=== PATIENT | male | born 1960 | race Two or more races ===

== ENCOUNTER 2017-01-09 08:54 | Outpatient (CLI) | payer BC ==
[~2017-01-09 08:54] MED LIST: ALBU8.5H2 IH; AMLO10TA4 PO; FLUT50DI IH; LISI40TA4 PO; METF500T4 PO; SITA25TA PO
[2017-01-09 09:24] LABS: BASOPHILS % (AUTO) 0.7 % (0.0-2.0); EOSINOPHILS # (AUTO) 0.2 /CMM (0.0-0.7); EOSINOPHILS % (AUTO) 2.9 % (0.0-6.0); HEMATOCRIT 45 % (39-51); HEMOGLOBIN 15.3 g/dL (13.5-17.5); LYMPHOCYTES % (AUTO) 14.4 % (20.0-44.0); MEAN CORPUSCULAR HEMOGLOBIN 29 PG (26.0-33.0); MEAN CORPUSCULAR HGB CONC 34 g/dl (31.0-36.0); MEAN CORPUSCULAR VOLUME 85 fL (80-96); MONOCYTES # (AUTO) 0.6 /CMM (0.1-1.30); MONOCYTES % (AUTO) 8.6 % (2.0-12.0); NEUTROPHILS % (AUTO) 73.4 % (43.0-81.0); PLATELET COUNT (AUTO) 231 /CMM (150-450); RDW COEFFICIENT OF VARIATION 14.3 (11.5-15.0); RED BLOOD CELL COUNT(AUTO) 5.37 MIL/uL (4.5-6.0); WHITE BLOOD COUNT (AUTO) 6.9 K/uL (4.3-11.0)
[2017-01-09 09:31] LABS: APPEARANCE,URINE CLEAR (CLEAR); BILIRUBIN,URINE NEGATIVE (NEGATIVE); BLOOD, URINE TRACE-INTA Ery/uL (NEGATIVE); COLOR,URINE YELLOW (YELLOW); KETONES,URINE NEGATIVE (NEGATIVE); LEUKOCYTE ESTERASE ,URINE NEGATIVE (NEGATIVE); NITRITE, URINE NEGATIVE (NEGATIVE); PROTEIN,URINE 1+ mg/dl (NEGATIVE); UGLUCOSE NEGATIVE (NEGATIVE); UROBILINOGEN,URINE 0.2 EU/dL (0.2)
[2017-01-09 09:35] LABS: ADD URINE CULTURE NO; BACTERIA,URINE None seen /HPF (None Seen); MUCUS,URINE Few /LPF (None Seen); RBC,URINE 0-2 /HPF (0-2); SQUAMOUS EPITHELIAL CELL,UR 0-2 /HPF (None Seen); URINE AMORPHOUS URATE Few /HPF (None Seen); WBC,URINE 0-2 /HPF (0-3)
[2017-01-09 09:41] LABS: CALCIUM, SERUM 8.9 mg/dL (8.5-10.1)
[2017-01-09 09:42] LABS: ALBUMIN 3.7 g/dL (3.4-5.0); BILIRUBIN,TOTAL 0.3 mg/dL (0.2-1.0); CREATININE 1.7 mg/dL (0.6-1.3); TOTAL PROTEIN, SERUM 7.7 g/dL (6.4-8.2)
[2017-01-09 09:52] LABS: THYROID STIMULATING HORMONE 1.547 uIU/mL (0.358-3.74)
[2017-01-10 09:19] LABS: T3 TOTAL 131 ng/dL (71-180)
[2017-01-10 11:12] LABS: HEPATITIS C VIRUS AB <0.1 s/co ratio (0.0-0.9)
== END 2017-01-09 23:59 | disposition home or self-care (01) ==
LOC: LAB 08:54
PROVIDERS: ATTEND Family Medicine
DX: Z11.59 Encounter for screening for other viral diseases (principal); E11.9 Type 2 diabetes mellitus without complications
CPT/HCPCS: 36415; 80053-TC; 80061-TC; 81000-TC; 84439-TC; 84443-TC; 84480; 85025-TC; 86803

== ENCOUNTER 2017-02-14 08:17 | Outpatient (CLI) | payer BC ==
[2017-02-14 09:13] LABS: APPEARANCE,URINE CLEAR (CLEAR); BILIRUBIN,URINE NEGATIVE (NEGATIVE); BLOOD, URINE TRACE Ery/uL (NEGATIVE); COLOR,URINE YELLOW (YELLOW); KETONES,URINE NEGATIVE (NEGATIVE); LEUKOCYTE ESTERASE ,URINE NEGATIVE (NEGATIVE); NITRITE, URINE NEGATIVE (NEGATIVE); PROTEIN,URINE 2+ mg/dl (NEGATIVE); UGLUCOSE NEGATIVE (NEGATIVE); UROBILINOGEN,URINE 0.2 EU/dL (0.2)
[2017-02-14 09:17] LABS: BASOPHILS % (AUTO) 0.5 % (0.0-2.0); EOSINOPHILS # (AUTO) 0.2 /CMM (0.0-0.7); EOSINOPHILS % (AUTO) 3.7 % (0.0-6.0); HEMATOCRIT 46 % (39-51); HEMOGLOBIN 15.5 g/dL (13.5-17.5); LYMPHOCYTES # (AUTO) 1.1 /CMM (0.8-4.8); LYMPHOCYTES % (AUTO) 16.1 % (20.0-44.0); MEAN CORPUSCULAR HEMOGLOBIN 29 PG (26.0-33.0); MEAN CORPUSCULAR HGB CONC 34 g/dl (31.0-36.0); MEAN CORPUSCULAR VOLUME 86 fL (80-96); MONOCYTES # (AUTO) 0.7 /CMM (0.1-1.30); MONOCYTES % (AUTO) 10.4 % (2.0-12.0); NEUTROPHILS # (AUTO) 4.6 /CMM (1.8-8.9); NEUTROPHILS % (AUTO) 69.3 % (43.0-81.0); PLATELET COUNT (AUTO) 222 /CMM (150-450); RDW COEFFICIENT OF VARIATION 14.6 (11.5-15.0); RED BLOOD CELL COUNT(AUTO) 5.36 MIL/uL (4.5-6.0); WHITE BLOOD COUNT (AUTO) 6.7 K/uL (4.3-11.0)
[2017-02-14 09:18] LABS: ALBUMIN 3.9 g/dL (3.4-5.0); BILIRUBIN,TOTAL 0.4 mg/dL (0.2-1.0); CALCIUM, SERUM 8.8 mg/dL (8.5-10.1); CREATININE 1.7 mg/dL (0.6-1.3); POTASSIUM 4.1 mmol/L (3.5-5.1)
[2017-02-14 09:26] LABS: RBC,URINE 0-2 /HPF (0-2); THYROID STIMULATING HORMONE 2.066 uIU/mL (0.358-3.74); WBC,URINE 0-2 /HPF (0-3)
[2017-02-14 09:28] LABS: ADD URINE CULTURE NO; BACTERIA,URINE None seen /HPF (None Seen); SQUAMOUS EPITHELIAL CELL,UR Rare /HPF (None Seen)
== END 2017-02-14 23:59 | disposition home or self-care (01) ==
LOC: LAB 08:17
PROVIDERS: ATTEND Family Medicine
DX: E11.9 Type 2 diabetes mellitus without complications (principal); M25.549 Pain in joints of unspecified hand
CPT/HCPCS: 36415; 80053-TC; 80061-TC; 81000-TC; 84439-TC; 84443-TC; 84480; 85025-TC

== ENCOUNTER 2017-04-30 08:22 | Outpatient (CLI) | payer BC ==
[2017-04-30 08:59] LABS: BASOPHILS # (AUTO) 0.1 /CMM (0.0-0.2); BASOPHILS % (AUTO) 0.6 % (0.0-2.0); EOSINOPHILS # (AUTO) 0.2 /CMM (0.0-0.7); EOSINOPHILS % (AUTO) 2.9 % (0.0-6.0); HEMATOCRIT 44 % (39-51); HEMOGLOBIN 14.9 g/dL (13.5-17.5); LYMPHOCYTES # (AUTO) 1.1 /CMM (0.8-4.8); LYMPHOCYTES % (AUTO) 13.3 % (20.0-44.0); MEAN CORPUSCULAR HEMOGLOBIN 29 PG (26.0-33.0); MEAN CORPUSCULAR HGB CONC 34 g/dl (31.0-36.0); MEAN CORPUSCULAR VOLUME 86 fL (80-96); MONOCYTES # (AUTO) 0.7 /CMM (0.1-1.30); NEUTROPHILS # (AUTO) 6.4 /CMM (1.8-8.9); NEUTROPHILS % (AUTO) 75.2 % (43.0-81.0); PLATELET COUNT (AUTO) 206 /CMM (150-450); RDW COEFFICIENT OF VARIATION 14.4 (11.5-15.0); RED BLOOD CELL COUNT(AUTO) 5.18 MIL/uL (4.5-6.0); WHITE BLOOD COUNT (AUTO) 8.4 K/uL (4.3-11.0)
[2017-04-30 09:22] LABS: ALBUMIN 3.7 g/dL (3.4-5.0); BILIRUBIN,TOTAL 0.3 mg/dL (0.2-1.0); CALCIUM, SERUM 8.5 mg/dL (8.5-10.1); CREATININE 1.6 mg/dL (0.6-1.3); POTASSIUM 4.1 mmol/L (3.5-5.1); TOTAL PROTEIN, SERUM 7.5 g/dL (6.4-8.2)
[2017-04-30 09:33] LABS: T4 (THYROXINE) 9.6 ug/dL (4.7-13.3); THYROID STIMULATING HORMONE 1.654 uIU/mL (0.358-3.74)
[2017-05-01 08:12] LABS: *TESTOSTERONE, SERUM 260 ng/dL (264-916); T3, FREE 3.6 pg/mL (2.0-4.4)
[2017-05-02 16:16] LABS: *TESTOSTERONE, FREE (DIRECT) 7.6 pg/mL (7.2-24.0)
== END 2017-04-30 23:59 | disposition home or self-care (01) ==
LOC: LAB 08:22
PROVIDERS: ATTEND Family Medicine
DX: E11.21 Type 2 diabetes mellitus with diabetic nephropathy (principal); E55.9 Vitamin D deficiency, unspecified; N52.1 Erectile dysfunction due to diseases classified elsewhere
CPT/HCPCS: 36415; 80053-TC; 80061-TC; 82306; 84402; 84403; 84436-TC; 84443-TC; 84481; 85025-TC

== ENCOUNTER 2017-05-16 08:52 | Outpatient (CLI) | payer BC | END 2017-05-16 23:59 | disposition home or self-care (01) | LOC: US 08:52 | PROVIDERS: ATTEND Family Medicine | DX: N40.0 Benign prostatic hyperplasia without lower urinary tract symptoms (principal); E11.21 Type 2 diabetes mellitus with diabetic nephropathy | CPT/HCPCS: 76770-TC ==

== ENCOUNTER 2017-06-18 08:47 | Outpatient (CLI) | payer BC | END 2017-06-18 23:59 | disposition home or self-care (01) | LOC: LAB 08:47 | PROVIDERS: ATTEND Family Medicine | DX: Z11.59 Encounter for screening for other viral diseases (principal); Z12.5 Encounter for screening for malignant neoplasm of prostate | CPT/HCPCS: 36415; 84153-TC; 86803 ==

== ENCOUNTER → 2017-08-29 | Outpatient (CLI) | payer BC ==
[2017-08-29 11:31] LABS: CREATININE, URINE 170.1 MG/DL (30.0-125.0); URINE TOTAL PROTEIN 159.6 mg/dL (0-11.9)
[2017-08-29 11:33] LABS: ALBUMIN 3.8 g/dL (3.4-5.0); BILIRUBIN,TOTAL 0.3 mg/dL (0.2-1.0); CALCIUM, SERUM 9.1 mg/dL (8.5-10.1); CREATININE 1.9 mg/dL (0.6-1.3); POTASSIUM 4.2 mmol/L (3.5-5.1); TOTAL PROTEIN, SERUM 7.8 g/dL (6.4-8.2)
== END | disposition home or self-care (01) ==
LOC: LAB 10:17
PROVIDERS: ATTEND Internal Medicine
DX: R03.0 Elevated blood-pressure reading, without diagnosis of hypertension (principal)
CPT/HCPCS: 36415; 80053-TC; 82570-TC; 84155-TC

== ENCOUNTER 2017-12-04 09:52 | Outpatient (CLI) | payer BC ==
[~2017-12-04 09:52] MED LIST changes: -ALBU8.5H2 IH; +ALBU8.5H8 IH
[2017-12-04 10:29] LABS: BASOPHILS % (AUTO) 0.3 % (0.0-2.0); EOSINOPHILS # (AUTO) 0.3 /CMM (0.0-0.7); EOSINOPHILS % (AUTO) 3.5 % (0.0-6.0); HEMATOCRIT 43 % (39-51); HEMOGLOBIN 14.5 g/dL (13.5-17.5); LYMPHOCYTES # (AUTO) 1.1 /CMM (0.8-4.8); LYMPHOCYTES % (AUTO) 15.3 % (20.0-44.0); MEAN CORPUSCULAR HEMOGLOBIN 29 PG (26.0-33.0); MEAN CORPUSCULAR HGB CONC 34 g/dl (31.0-36.0); MEAN CORPUSCULAR VOLUME 86 fL (80-96); MONOCYTES # (AUTO) 0.6 /CMM (0.1-1.30); MONOCYTES % (AUTO) 7.5 % (2.0-12.0); NEUTROPHILS # (AUTO) 5.4 /CMM (1.8-8.9); NEUTROPHILS % (AUTO) 73.4 % (43.0-81.0); PLATELET COUNT (AUTO) 228 /CMM (150-450); RDW COEFFICIENT OF VARIATION 14.3 (11.5-15.0); RED BLOOD CELL COUNT(AUTO) 4.96 MIL/uL (4.5-6.0); WHITE BLOOD COUNT (AUTO) 7.4 K/uL (4.3-11.0)
[2017-12-04 10:31] LABS: APPEARANCE,URINE CLEAR (CLEAR); BILIRUBIN,URINE NEGATIVE (NEGATIVE); BLOOD, URINE NEGATIVE Ery/uL (NEGATIVE); COLOR,URINE YELLOW (YELLOW); KETONES,URINE NEGATIVE (NEGATIVE); LEUKOCYTE ESTERASE ,URINE NEGATIVE (NEGATIVE); NITRITE, URINE NEGATIVE (NEGATIVE); PH,URINE 5.5 (5.0-8.0); PROTEIN,URINE 2+ mg/dl (NEGATIVE); UGLUCOSE NEGATIVE (NEGATIVE); UROBILINOGEN,URINE 0.2 EU/dL (0.2)
[2017-12-04 10:44] LABS: ALBUMIN 3.9 g/dL (3.4-5.0); BILIRUBIN,TOTAL 0.5 mg/dL (0.2-1.0); CALCIUM, SERUM 9.3 mg/dL (8.5-10.1); CREATININE 1.8 mg/dL (0.6-1.3); POTASSIUM 4.1 mmol/L (3.5-5.1); TOTAL PROTEIN, SERUM 8.5 g/dL (6.4-8.2)
[2017-12-04 10:51] LABS: THYROID STIMULATING HORMONE 1.226 uIU/mL (0.358-3.74)
[2017-12-04 11:46] LABS: BACTERIA,URINE None seen /HPF (None Seen); RBC,URINE 0-2 /HPF (0-2); SQUAMOUS EPITHELIAL CELL,UR Rare /HPF (None Seen); WBC,URINE 0-2 /HPF (0-3)
== END 2017-12-04 23:59 | disposition home or self-care (01) ==
LOC: LAB 09:52
PROVIDERS: ATTEND Family Medicine
DX: E11.21 Type 2 diabetes mellitus with diabetic nephropathy (principal)
CPT/HCPCS: 36415; 80053-TC; 80061-TC; 81000-TC; 84439-TC; 84443-TC; 85025-TC

== ENCOUNTER 2018-06-21 08:46 | Outpatient (CLI) | payer BC ==
[~2018-06-21 08:46] MED LIST changes: -METF500T4 PO; +METF500T6 PO
== END 2018-06-21 23:59 | disposition home or self-care (01) ==
LOC: US 08:46
PROVIDERS: ATTEND Family Medicine
DX: K80.20 Calculus of gallbladder without cholecystitis without obstruction (principal); I10 Essential (primary) hypertension; J45.909 Unspecified asthma, uncomplicated; E11.9 Type 2 diabetes mellitus without complications
CPT/HCPCS: 76700-TC

== ENCOUNTER 2018-06-27 09:42 | Outpatient (CLI) | payer BC ==
[~2018-06-27 09:42] MED LIST changes: +METF-440 PO; -METF500T6 PO
[2018-06-27 10:47] LABS: BASOPHILS # (AUTO) 0.1 /CMM (0.0-0.2); BASOPHILS % (AUTO) 0.6 % (0.0-2.0); EOSINOPHILS % (AUTO) 3.4 % (0.0-6.0); HEMATOCRIT 42 % (39-51); HEMOGLOBIN 13.6 g/dL (13.5-17.5); LYMPHOCYTES # (AUTO) 1.2 /CMM (0.8-4.8); LYMPHOCYTES % (AUTO) 12.5 % (20.0-44.0); MEAN CORPUSCULAR HGB CONC 32 g/dl (31.0-36.0); MEAN CORPUSCULAR VOLUME 89 fL (80-96); MONOCYTES # (AUTO) 0.8 /CMM (0.1-1.30); MONOCYTES % (AUTO) 8.2 % (2.0-12.0); NEUTROPHILS % (AUTO) 75.3 % (43.0-81.0); PLATELET COUNT (AUTO) 255 /CMM (150-450); RDW COEFFICIENT OF VARIATION 14.5 (11.5-15.0); RED BLOOD CELL COUNT(AUTO) 4.71 MIL/uL (4.5-6.0); WHITE BLOOD COUNT (AUTO) 9.3 K/uL (4.3-11.0)
[2018-06-27 11:19] LABS: FERRITIN 302 ng/mL (8-388)
[2018-06-27 11:29] LABS: IRON, SERUM 65 ug/dl (50-175); TOTAL IRON BINDING CAPACITY 294 ug/dl (250-450)
[2018-07-01 17:50] LABS: OCCULT BLOOD STOOL NEGATIVE (NEGATIVE)
[2018-07-01 17:51] LABS: OCCULT BLOOD STOOL NEGATIVE (NEGATIVE)
== END 2018-06-27 23:59 | disposition home or self-care (01) ==
LOC: LAB 09:42
PROVIDERS: ATTEND Family Medicine
DX: D64.9 Anemia, unspecified (principal); I10 Essential (primary) hypertension; E11.9 Type 2 diabetes mellitus without complications; J45.909 Unspecified asthma, uncomplicated
CPT/HCPCS: 36415; 82272-TC; 82728-TC; 83540-TC; 85025-TC

== ENCOUNTER 2018-10-03 11:20 | Outpatient (CLI) | payer BC | END 2018-10-03 23:59 | disposition home or self-care (01) | LOC: MRI 11:20 | DX: G31.9 Degenerative disease of nervous system, unspecified (principal); I25.9 Chronic ischemic heart disease, unspecified; J32.0 Chronic maxillary sinusitis | CPT/HCPCS: 70551-TC ==

== ENCOUNTER 2019-09-11 15:09 | Outpatient (CLI) | payer BC | END 2019-09-11 23:59 | disposition home or self-care (01) | LOC: MRI 15:09 | PROVIDERS: ATTEND Family Medicine | DX: M19.011 Primary osteoarthritis, right shoulder (principal); M77.8 Other enthesopathies, not elsewhere classified | CPT/HCPCS: 73221-TC ==

== ENCOUNTER 2020-03-25 15:02 | Outpatient (CLI) | payer BC ==
[2020-03-25 16:05] LABS: BASOPHILS # (AUTO) 0.1 /CMM (0.0-0.2); EOSINOPHILS % (AUTO) 3.8 % (0.0-6.0); HEMATOCRIT 38 % (39-51); HEMOGLOBIN 12.3 g/dL (13.5-17.5); LYMPHOCYTES # (AUTO) 1.1 /CMM (0.8-4.8); MEAN CORPUSCULAR HGB CONC 33 g/dl (31.0-36.0); MEAN CORPUSCULAR VOLUME 87 fL (80-96); MONOCYTES # (AUTO) 0.7 /CMM (0.1-1.30); MONOCYTES % (AUTO) 8.5 % (2.0-12.0); NEUTROPHILS # (AUTO) 6.3 /CMM (1.8-8.9); NEUTROPHILS % (AUTO) 73.7 % (43.0-81.0); PLATELET COUNT (AUTO) 244 /CMM (150-450); RED BLOOD CELL COUNT(AUTO) 4.29 MIL/uL (4.5-6.0); WHITE BLOOD COUNT (AUTO) 8.5 K/uL (4.3-11.0)
[2020-03-25 16:27] LABS: APPEARANCE,URINE CLEAR (CLEAR); BILIRUBIN,URINE NEGATIVE (NEGATIVE); BLOOD, URINE TRACE-INTA Ery/uL (NEGATIVE); COLOR,URINE YELLOW (YELLOW); KETONES,URINE NEGATIVE (NEGATIVE); LEUKOCYTE ESTERASE ,URINE NEGATIVE (NEGATIVE); NITRITE, URINE NEGATIVE (NEGATIVE); PROTEIN,URINE 100 mg/dl (NEGATIVE); UGLUCOSE NEGATIVE (NEGATIVE); UROBILINOGEN,URINE 0.2 EU/dL (0.2)
[2020-03-25 16:36] LABS: ALBUMIN 3.8 g/dL (3.4-5.0); BACTERIA,URINE None seen /HPF (None Seen); BILIRUBIN,TOTAL 0.3 mg/dL (0.2-1.0); CALCIUM, SERUM 8.8 mg/dL (8.5-10.1); CREATININE 2.3 mg/dL (0.6-1.3); POTASSIUM 4.3 mmol/L (3.5-5.1); SQUAMOUS EPITHELIAL CELL,UR Few /HPF (None Seen); TOTAL PROTEIN, SERUM 8.1 g/dL (6.4-8.2); WBC,URINE 0-2 /HPF (0-3)
[2020-03-25 16:54] LABS: FREE T4 (FREE THYROXINE) 1.11 ng/dL (0.76-1.46); PROSTATE SPECIFIC ANTIGEN SCR 3.33 ng/mL (0.00-4.00); THYROID STIMULATING HORMONE 1.58 uIU/mL (0.358-3.74); URIC ACID 6.3 mg/dL (2.6-7.2)
[2020-03-26 08:18] LABS: FOLIC ACID > 20.0 ng/mL (>3.0)
== END 2020-03-25 23:59 | disposition home or self-care (01) ==
LOC: LAB 15:02
PROVIDERS: ATTEND Family Medicine
DX: Z00.00 Encounter for general adult medical examination without abnormal findings (principal); E11.9 Type 2 diabetes mellitus without complications; E78.00 Pure hypercholesterolemia, unspecified; I10 Essential (primary) hypertension; E03.9 Hypothyroidism, unspecified; D64.9 Anemia, unspecified; E55.9 Vitamin D deficiency, unspecified
CPT/HCPCS: 36415; 80053-TC; 80061-TC; 81000-TC; 82306; 82728-TC; 83540-TC; 84153-TC; 84402; 84403; 84439-TC; 84443-TC; 84550-TC; 85025-TC; 87086-TC

== ENCOUNTER 2021-07-06 09:23 | Outpatient (CLI) | payer BC ==
[~2021-07-06 09:23] MED LIST changes: +LISI40TA13 PO; -LISI40TA4 PO
[2021-07-06 10:25] LABS: BASOPHILS # (AUTO) 0.1 K/uL (0.0-0.2); BASOPHILS % (AUTO) 1.1 % (0.0-2.0); EOSINOPHILS % (AUTO) 3.6 % (0.0-6.0); HEMATOCRIT 36 % (39-51); HEMOGLOBIN 11.8 g/dL (13.5-17.5); LYMPHOCYTES # (AUTO) 0.7 K/uL (0.8-4.8); LYMPHOCYTES % (AUTO) 11.2 % (20.0-44.0); MEAN CORPUSCULAR HGB CONC 33 g/dl (31.0-36.0); MEAN CORPUSCULAR VOLUME 88 fL (80-96); MONOCYTES # (AUTO) 0.6 K/uL (0.1-1.30); MONOCYTES % (AUTO) 8.9 % (2.0-12.0); NEUTROPHILS # (AUTO) 4.8 K/uL (1.8-8.9); NEUTROPHILS % (AUTO) 75.2 % (43.0-81.0); PLATELET COUNT (AUTO) 240 K/uL (150-450); RED BLOOD CELL COUNT(AUTO) 4.12 MIL/uL (4.5-6.0); WHITE BLOOD COUNT (AUTO) 6.3 K/uL (4.3-11.0)
[2021-07-06 10:38] LABS: BILIRUBIN,URINE NEGATIVE (NEGATIVE); COLOR,URINE YELLOW (YELLOW); LEUKOCYTE ESTERASE ,URINE NEGATIVE (NEGATIVE); NITRITE, URINE NEGATIVE (NEGATIVE); PROTEIN,URINE >=300 mg/dl (NEGATIVE); UGLUCOSE NEGATIVE (NEGATIVE); UROBILINOGEN,URINE 0.2 EU/dL (0.2)
[2021-07-06 10:53] LABS: ALBUMIN 3.4 g/dL (3.4-5.0); BILIRUBIN,TOTAL 0.2 mg/dL (0.2-1.0); CALCIUM, SERUM 8.2 mg/dL (8.5-10.1); CREATININE 2.7 mg/dL (0.6-1.3); POTASSIUM 4.4 mmol/L (3.5-5.1); TOTAL PROTEIN, SERUM 7.8 g/dL (6.4-8.2)
[2021-07-06 10:54] LABS: BACTERIA,URINE Few /HPF (None Seen); RBC,URINE 0-2 /HPF (0-2); SQUAMOUS EPITHELIAL CELL,UR Rare /HPF (None Seen); WBC,URINE 0-2 /HPF (0-3)
[2021-07-06 10:55] LABS: HYALINE CASTS, URINE Rare /LPF (None Seen)
[2021-07-06 10:56] LABS: FINE GRANULAR CASTS,URINE Rare /LPF (None Seen)
[2021-07-06 11:05] LABS: PROSTATE SPECIFIC ANTIGEN SCR 4.12 ng/mL (0.00-4.00); URIC ACID 6.1 mg/dL (2.6-7.2)
== END 2021-07-06 23:59 | disposition home or self-care (01) ==
LOC: LAB 09:23
PROVIDERS: ATTEND Legal Medicine
DX: E11.22 Type 2 diabetes mellitus with diabetic chronic kidney disease (principal); N18.9 Chronic kidney disease, unspecified; E78.5 Hyperlipidemia, unspecified
CPT/HCPCS: 36415; 80053-TC; 80061-TC; 81001; 82607-TC; 82728-TC; 83540-TC; 84153-TC; 84402; 84403; 84550-TC; 85025-TC; 87086-TC

== ENCOUNTER 2021-07-13 09:07 | Outpatient (CLI) | payer BC | END 2021-07-13 23:59 | disposition home or self-care (01) | LOC: US 09:07 | PROVIDERS: ATTEND Legal Medicine | DX: N18.9 Chronic kidney disease, unspecified (principal); N40.1 Benign prostatic hyperplasia with lower urinary tract symptoms; N13.8 Other obstructive and reflux uropathy | CPT/HCPCS: 76770-TC; 76856-TC ==

== ENCOUNTER 2022-06-22 09:49 | Outpatient (CLI) | payer BC ==
[2022-06-22 11:03] LABS: BASOPHILS # (AUTO) 0.1 K/uL (0.0-0.2); EOSINOPHILS % (AUTO) 3.7 % (0.0-6.0); HEMATOCRIT 36 % (39-51); HEMOGLOBIN 11.9 g/dL (13.5-17.5); LYMPHOCYTES # (AUTO) 0.7 K/uL (0.8-4.8); LYMPHOCYTES % (AUTO) 10.4 % (20.0-44.0); MEAN CORPUSCULAR HGB CONC 33 g/dl (31.0-36.0); MEAN CORPUSCULAR VOLUME 85 fL (80-96); MONOCYTES # (AUTO) 0.6 K/uL (0.1-1.30); NEUTROPHILS # (AUTO) 5.4 K/uL (1.8-8.9); NEUTROPHILS % (AUTO) 76.9 % (43.0-81.0); PLATELET COUNT (AUTO) 255 K/uL (150-450); RED BLOOD CELL COUNT(AUTO) 4.23 MIL/uL (4.5-6.0); WHITE BLOOD COUNT (AUTO) 7.1 K/uL (4.3-11.0)
[2022-06-22 11:35] LABS: ALBUMIN 3.6 g/dL (3.4-5.0); BILIRUBIN,TOTAL 0.3 mg/dL (0.2-1.0); CALCIUM, SERUM 8.8 mg/dL (8.5-10.1); CREATININE 3.4 mg/dL (0.6-1.3); POTASSIUM 4.1 mmol/L (3.5-5.1)
[2022-06-22 11:49] LABS: TOTAL PROTEIN, SERUM 7.9 g/dL (6.4-8.2)
[2022-06-22 11:52] LABS: THYROID STIMULATING HORMONE 0.911 uIU/mL (0.358-3.74)
== END 2022-06-22 23:59 | disposition home or self-care (01) ==
LOC: LAB 09:49
PROVIDERS: ATTEND Internal Medicine Interventional Cardiology
DX: I10 Essential (primary) hypertension (principal); E11.9 Type 2 diabetes mellitus without complications; D64.9 Anemia, unspecified; E78.5 Hyperlipidemia, unspecified; R53.83 Other fatigue
CPT/HCPCS: 36415; 80053-TC; 80061-TC; 84443-TC; 85025-TC

== ENCOUNTER 2022-09-20 09:25 | Outpatient (CLI) | payer BC ==
[2022-09-20 11:38] LABS: BASOPHILS # (AUTO) 0.1 K/uL (0.0-0.2); BASOPHILS % (AUTO) 0.9 % (0.0-2.0); EOSINOPHILS % (AUTO) 7.5 % (0.0-6.0); HEMATOCRIT 40 % (39-51); HEMOGLOBIN 12.8 g/dL (13.5-17.5); LYMPHOCYTES # (AUTO) 0.8 K/uL (0.8-4.8); LYMPHOCYTES % (AUTO) 14.6 % (20.0-44.0); MEAN CORPUSCULAR HGB CONC 32 g/dl (31.0-36.0); MEAN CORPUSCULAR VOLUME 87 fL (80-96); MONOCYTES # (AUTO) 0.6 K/uL (0.1-1.30); NEUTROPHILS # (AUTO) 3.9 K/uL (1.8-8.9); PLATELET COUNT (AUTO) 197 K/uL (150-450); PROSTATE SPECIFIC ANTIGEN SCR 3.89 ng/mL (0.00-4.00); RED BLOOD CELL COUNT(AUTO) 4.55 MIL/uL (4.5-6.0); THYROID STIMULATING HORMONE 0.933 uIU/mL (0.358-3.74); URIC ACID 7.6 mg/dL (2.6-7.2); WHITE BLOOD COUNT (AUTO) 5.8 K/uL (4.3-11.0)
[2022-09-20 11:47] LABS: ALBUMIN 3.9 g/dL (3.4-5.0); BILIRUBIN,TOTAL 0.2 mg/dL (0.2-1.0); CALCIUM, SERUM 8.7 mg/dL (8.5-10.1); CREATININE 3.1 mg/dL (0.6-1.3); POTASSIUM 3.8 mmol/L (3.5-5.1); TOTAL PROTEIN, SERUM 8.1 g/dL (6.4-8.2)
[2022-09-20 11:53] LABS: BILIRUBIN,URINE NEGATIVE (NEGATIVE); COLOR,URINE YELLOW (YELLOW); LEUKOCYTE ESTERASE ,URINE NEGATIVE (NEGATIVE); NITRITE, URINE NEGATIVE (NEGATIVE); PH,URINE 5.5 (5.0-8.0); PROTEIN,URINE 2+ mg/dl (NEGATIVE); UGLUCOSE TRACE mg/dL (NEGATIVE); UROBILINOGEN,URINE 0.2 EU/dL (0.2)
[2022-09-20 12:33] LABS: BACTERIA,URINE None seen /HPF (None Seen); RBC,URINE NONE SEEN /HPF (0-2); SQUAMOUS EPITHELIAL CELL,UR None Seen /HPF (None Seen); WBC,URINE NONE SEEN /HPF (0-3)
== END 2022-09-20 23:59 | disposition home or self-care (01) ==
LOC: LAB 09:25
PROVIDERS: ATTEND Legal Medicine
DX: R05.9 Cough, unspecified (principal); E11.9 Type 2 diabetes mellitus without complications; Z00.00 Encounter for general adult medical examination without abnormal findings; E55.9 Vitamin D deficiency, unspecified; D64.9 Anemia, unspecified; E78.00 Pure hypercholesterolemia, unspecified; E03.9 Hypothyroidism, unspecified
CPT/HCPCS: 36415; 71046; 80053-TC; 80061-TC; 81001; 82607-TC; 82728-TC; 83540-TC; 84153-TC; 84402; 84403; 84443-TC; 84550-TC; 85025-TC

== ENCOUNTER 2022-11-22 09:26 | Outpatient (CLI) | payer BC ==
[2022-11-22 10:36] LABS: BASOPHILS # (AUTO) 0.1 K/uL (0.0-0.2); BASOPHILS % (AUTO) 0.8 % (0.0-2.0); EOSINOPHILS % (AUTO) 3.8 % (0.0-6.0); HEMATOCRIT 36 % (39-51); HEMOGLOBIN 12.2 g/dL (13.5-17.5); LYMPHOCYTES # (AUTO) 0.7 K/uL (0.8-4.8); LYMPHOCYTES % (AUTO) 9.2 % (20.0-44.0); MEAN CORPUSCULAR HGB CONC 33 g/dl (31.0-36.0); MEAN CORPUSCULAR VOLUME 84 fL (80-96); MONOCYTES # (AUTO) 0.6 K/uL (0.1-1.30); MONOCYTES % (AUTO) 7.9 % (2.0-12.0); NEUTROPHILS # (AUTO) 6.3 K/uL (1.8-8.9); NEUTROPHILS % (AUTO) 78.3 % (43.0-81.0); PLATELET COUNT (AUTO) 307 K/uL (150-450); RED BLOOD CELL COUNT(AUTO) 4.31 MIL/uL (4.5-6.0)
[2022-11-22 11:01] LABS: BILIRUBIN,URINE NEGATIVE (NEGATIVE); COLOR,URINE YELLOW (YELLOW); LEUKOCYTE ESTERASE ,URINE NEGATIVE (NEGATIVE); NITRITE, URINE NEGATIVE (NEGATIVE); PROTEIN,URINE 2+ mg/dl (NEGATIVE); UGLUCOSE NEGATIVE (NEGATIVE); UROBILINOGEN,URINE 0.2 EU/dL (0.2)
[2022-11-22 11:44] LABS: PROSTATE SPECIFIC ANTIGEN SCR 3.93 ng/mL (0.00-4.00); THYROID STIMULATING HORMONE 0.628 uIU/mL (0.358-3.74); URIC ACID 7.4 mg/dL (2.6-7.2)
[2022-11-22 11:47] LABS: ALBUMIN 3.7 g/dL (3.4-5.0); BILIRUBIN,TOTAL 0.3 mg/dL (0.2-1.0); CALCIUM, SERUM 9.2 mg/dL (8.5-10.1); POTASSIUM 3.8 mmol/L (3.5-5.1); TOTAL PROTEIN, SERUM 8.1 g/dL (6.4-8.2)
[2022-11-22 12:54] LABS: BACTERIA,URINE Few /HPF (None Seen); RBC,URINE 0-2 /HPF (0-2); SQUAMOUS EPITHELIAL CELL,UR Few /HPF (None Seen); WBC,URINE 0-2 /HPF (0-3)
== END 2022-11-22 23:59 | disposition home or self-care (01) ==
LOC: LAB 09:26
PROVIDERS: ATTEND Legal Medicine
DX: Z00.00 Encounter for general adult medical examination without abnormal findings (principal); E11.9 Type 2 diabetes mellitus without complications; E78.00 Pure hypercholesterolemia, unspecified; D64.9 Anemia, unspecified; E03.9 Hypothyroidism, unspecified
CPT/HCPCS: 36415; 80053-TC; 80061-TC; 81001; 82607-TC; 82728-TC; 83540-TC; 84153-TC; 84402; 84403; 84443-TC; 84550-TC; 85025-TC

== ENCOUNTER 2023-02-22 12:19 | Inpatient (IN) | payer BC ==
[~2023-02-22] VITALS: Ht 170.2 cm; Wt 94.3 kg
--- NOTE | 2023-02-22 12:34 | NUR ---
IV ESTABLISHED R 20G. LABS COLLECTED AND SENT.
--- NOTE | 2023-02-22 12:38 | NUR ---
Brandon AOx4, able to express his own concerns. Patient states he was having chest pressure earlier, not at the moment. Patient states there is no pain or discomfort now. Discussed plan of care, patient verbalized agreement. All safety precautions taken.
[2023-02-22] MEDS ORDERED: ASPIRIN 325 MG TABLET PO ONE (13:00)
[2023-02-22 13:01] LABS: BASOPHILS # (AUTO) 0.2 K/uL (0.0-0.2); BASOPHILS % (AUTO) 1.8 % (0.0-2.0); EOSINOPHILS % (AUTO) 4.4 % (0.0-6.0); HEMATOCRIT 40 % (39-51); HEMOGLOBIN 12.8 g/dL (13.5-17.5); LYMPHOCYTES # (AUTO) 0.9 K/uL (0.8-4.8); LYMPHOCYTES % (AUTO) 10.4 % (20.0-44.0); MEAN CORPUSCULAR HGB CONC 32 g/dl (31.0-36.0); MEAN CORPUSCULAR VOLUME 88 fL (80-96); MONOCYTES % (AUTO) 10.5 % (2.0-12.0); NEUTROPHILS # (AUTO) 6.6 K/uL (1.8-8.9); NEUTROPHILS % (AUTO) 72.9 % (43.0-81.0); PLATELET COUNT (AUTO) 229 K/uL (150-450); RED BLOOD CELL COUNT(AUTO) 4.53 MIL/uL (4.5-6.0)
--- NOTE | 2023-02-22 13:14 | NUR ---
CALLED NURSING SUP REGARDING PT BED
[2023-02-22] MEDS ORDERED: ASPIRIN 325 MG TABLET ONE (13:19)
[2023-02-22 13:38] LABS: CARBON DIOXIDE 24 mmol/L (21-32); CHLORIDE 103 mmol/L (98-107); CREATININE 3.6 mg/dL (0.6-1.3); GLUCOSE 207 mg/dL (74-106); POTASSIUM 4.3 mmol/L (3.5-5.1); SODIUM SERUM 136 mmol/L (136-145); UREA NITROGEN, BLOOD 45 mg/dL (7-18)
[2023-02-22] MEDS ORDERED: NATE120T6 PO (13:39)
[2023-02-22] MEDS ORDERED: FLUT1DIS3 INH (13:39)
[2023-02-22] MEDS ORDERED: LOSA50TA39 PO (13:39)
[2023-02-22] MEDS ORDERED: NATE60TA4 PO (13:39)
[2023-02-22] MEDS ORDERED: ATOR10TA PO (13:39)
[2023-02-22] MEDS ORDERED: FLUO20CA42 PO (13:39)
[2023-02-22] MEDS ORDERED: HYDR25TA4 PO (13:39)
[2023-02-22 13:50] LABS: ALANINE AMINOTRANSFERASE 50 U/L (12-78); ALKALINE PHOSPHATASE 99 U/L (46-116); ASPARTATE AMINOTRANSFERASE 31 U/L (15-37); BILIRUBIN,DIRECT 0.1 mg/dL (0.0-0.2); BILIRUBIN,TOTAL 0.3 mg/dL (0.2-1.0); TOTAL PROTEIN, SERUM 8.2 g/dL (6.4-8.2)
[2023-02-22] MEDS ORDERED: HYDROCODONE/APAP 5/325MG TABLET PO PRN (14:30)
[2023-02-22] MEDS ORDERED: ACETAMINOPHEN 325 MG TABLET PO PRN (14:30)
[2023-02-22] MEDS ORDERED: NITROGLYCERIN 0.4 MG/TAB BOTTLE SL PRN (14:30)
[2023-02-22] MEDS ORDERED: ONDANSETRON HCL/PF 4 MG/2 ML VIAL IVP PRN (14:30)
[2023-02-22] MEDS ORDERED: IV 1/2NS 1000 ML 1,000 ML IV PRN (14:30)
[2023-02-22] MEDS ORDERED: MORPHINE SULFATE INJ 2 MG/ML DISP.SYRIN IV PRN (14:30)
[2023-02-22] MEDS ORDERED: Z GUARD REMEDY 4 OZ OINT TP PRN (14:30)
[2023-02-22] MEDS ORDERED: DEXTROSE 50%-WATER 50 ML DISP.SYRIN IV PRN (14:30)
--- NOTE | 2023-02-22 14:59 | NUR ---
ROOM 321-1
--- NOTE | 2023-02-22 15:10 | NUR ---
REPORT GIVEN TO NURSE HEATHER FOR EMERALD
--- NOTE | 2023-02-22 15:59 | NUR ---
SHAKER REPAIRERMASTER [place] NOTE (DAY SHIFT) Patient arrived to [facility] , Room 321 - bed 2, from Emergency Dept via gurney accompanied by his at 15:55 hrs. Patient is alert and oriented x 4 without any c/o pain nor signs of distress, oxygen saturation = 98% on room air. VS stable. monitoring coordinator shows sinus rythym in the 60s bpm heart range. Patient is independent, steady on his feet without dizziness nor palpitations. Will continue to care for and monitor patient per MD POC.
[2023-02-22] MEDS ORDERED: ALBUTEROL FS 2.5 MG/3 ML VIAL.NEB NEB PRN (16:00)
[2023-02-22] MEDS: BLOOD SUGAR DIAGNOSTIC 1 EACH STRIP IN SCH ×2 (16:48→22:00)
[2023-02-22] MEDS: LOSARTAN POTASSIUM 50 MG TABLET PO SCH (16:48)
[2023-02-22] MEDS: INSULIN REGULAR, HUMAN 100 UNIT/ML 3 ML VIAL SQ PRN (16:52)
[2023-02-22] MEDS ORDERED: FLUTICASONE/SALMETEROL 1 DISK IH SCH (17:00)
--- NOTE | 2023-02-22 19:00 | NUR ---
ASSEMBLY MECHANIC CLOSING NOTE (DAY SHIFT) Patient is comfortable in bed. No c/o pain. Breathing is regular and even without distress. classroom monitor continues to show sinus rythym in the 60s bpm range. SCDs on for VTE prophylaxis. Ate 100% of diabetic dinner meal. Has pIV catheter # 20 Gauge to right antecubital space, intact, patent, with 1/2 NS infusing well at 75 mLs/hr. Will endorse to night nurse,Russell, for EMERALD.
--- NOTE | 2023-02-22 19:42 | NUR ---
DCS ENGINEER OPENING NOTES; RECEIVED PATIENT AWAKE IN BED ACCOMPANIED BY FAMILY, BED IN LOW POSITION YOSEPH LIGHTS WITHIN REACH, NO COMPLAIN OF PAIN AND DISCOMFORT AT THIS TIME , ON ROOM AIR SATURATING WELL, PATIENT ON TELE MONITOR- SR-60, IV LINE AT RAC#20 WITH ONGOING 1/6CQ115TF/HR INFUSING WELL, VNPO POST MN, PATIENT KEPT CLEAN AND DRY ALL NEEDS MET WILL CONTINUE TO MONITOR.
[2023-02-22 20:00] VITALS: BP 153/85
--- NOTE | 2023-02-22 22:00 | NUR ---
RN NOTES: PATIENT REFUSED TO SIGNED CONSENT UNTIL HE TALK WITH THE DOCTOR PAVEL
--- NOTE | 2023-02-22 22:06 | NUR ---
RN NOTES; BLOOD SUGAR-112/ PATIENT ON PO POST MIDNIGHT/ OUT OF PARAMETER
[2023-02-23] VITALS (14 sets, daily range): BP systolic 118–148; BP diastolic 67–80
[2023-02-23] MEDS ORDERED: IV SET PRIMARY PUMP SET 1 EA INFUS.SET MC ONE (06:45)
[2023-02-23] MEDS ORDERED: IV NS 0.9% 1,000 ML ONE (06:45)
[2023-02-23] MEDS ORDERED: LIDOCAINE HCL/PF 1% 30 ML SDV ONE (06:46)
[2023-02-23] MEDS ORDERED: IODIXANOL 150 ML IV ONE (06:46)
[2023-02-23] MEDS ORDERED: NITROGLYCERIN IN 5 % DEXTROSE 250 ML IV ONE (06:46)
[2023-02-23 06:50] LABS: BASOPHILS # (AUTO) 0.1 K/uL (0.0-0.2); BASOPHILS % (AUTO) 1.1 % (0.0-2.0); EOSINOPHILS % (AUTO) 5.7 % (0.0-6.0); HEMATOCRIT 37 % (39-51); LYMPHOCYTES # (AUTO) 1.1 K/uL (0.8-4.8); LYMPHOCYTES % (AUTO) 12.9 % (20.0-44.0); MEAN CORPUSCULAR HGB CONC 33 g/dl (31.0-36.0); MEAN CORPUSCULAR VOLUME 85 fL (80-96); MONOCYTES # (AUTO) 0.9 K/uL (0.1-1.30); MONOCYTES % (AUTO) 10.1 % (2.0-12.0); NEUTROPHILS # (AUTO) 5.9 K/uL (1.8-8.9); NEUTROPHILS % (AUTO) 70.2 % (43.0-81.0); PLATELET COUNT (AUTO) 223 K/uL (150-450); RED BLOOD CELL COUNT(AUTO) 4.31 MIL/uL (4.5-6.0); WHITE BLOOD COUNT (AUTO) 8.4 K/uL (4.3-11.0)
[2023-02-23] MEDS: BLOOD SUGAR DIAGNOSTIC 1 EACH STRIP IN SCH ×4 (06:54→22:11)
--- NOTE | 2023-02-23 06:55 | NUR ---
RN NOTES: BLOOD SUGAR-189, NO INSULIN GIVEN PATIENT ON NPO FOR CARDIAC CATHETERIZATION
[2023-02-23] MEDS ORDERED: methylPREDNISolone SOD SUCC 125 MG/2ML VIAL ONE (06:56)
[2023-02-23] MEDS ORDERED: diphenhydrAMINE HCL 50 MG/ML VIAL ONE (07:04)
[2023-02-23] MEDS ORDERED: FENTANYL PF 100MCG/2ML AMPUL ONE (07:05)
[2023-02-23] MEDS: BUDESONIDE RESPULE INH 0.5 MG/2 ML AMPUL.NEB NEB SCH ×2 (07:05→13:11)
--- NOTE | 2023-02-23 07:15 | NUR ---
PROCESS SAFETY MANAGEMENT ENGINEER CLOSING NOTES: PATIENT WAS AWAKE ACCOMPANIED BY AT ROOM, ON NPO FOR CARDIAC CATHETERIZATION RETAIL COVERAGE MERCHANDISER AT 0640A, IV LINE AT RAC#22 WITH ONGOING 0.9NSS@75ML/HR INFUSING WELL, V/S ARE WITHIN NORMAL REACH, NO SOB ON ROOM AIR, PRE OPERATION LIST WAS GIVEN, CONSENT SIGNED, PATIENT KEPT CLEAN AND DRY ALL NEEDS MET, RETAIL COVERAGE MERCHANDISER TO CARDIAC LAB AT 0640 ON STABLE CONDITION,
[2023-02-23 07:18] LABS: ALBUMIN 3.5 g/dL (3.4-5.0); BILIRUBIN,TOTAL 0.4 mg/dL (0.2-1.0); CALCIUM, SERUM 8.9 mg/dL (8.5-10.1); CREATININE 3.1 mg/dL (0.6-1.3); MAGNESIUM 2.4 mg/dL (1.8-2.4); PHOSPHORUS 4.1 mg/dL (2.5-4.9); POTASSIUM 4.7 mmol/L (3.5-5.1); TOTAL PROTEIN, SERUM 7.4 g/dL (6.4-8.2)
--- NOTE | 2023-02-23 07:20 | NUR ---
RECEPTIONIST SCHEDULER OPENING NOTES ENDORSED FORM IMPROVEMENT COORDINATOR THAT PATIENT IS ON PROCEDURE AT THIS TIME FOR LEFT HEART CATHETERAZATION
[2023-02-23] MEDS ORDERED: HEPARIN SODIUM, PORCINE 5000 UNITS/1 ML VIAL ONE (07:27)
[2023-02-23] MEDS ORDERED: IODIXANOL 320MG/ML 50 ML IV ONE ×2 (07:28→07:56)
[2023-02-23] MEDS ORDERED: HEPARIN SODIUM, PORCINE 1,000 UNIT/ML VIAL ONE ×2 (07:28→07:54)
[2023-02-23] MEDS: PANTOPRAZOLE 40 MG TABLET.DR PO SCH (07:30)
[2023-02-23] MEDS ORDERED: PHENYLEPHRINE 10 MG/ML VIAL ONE (07:33)
[2023-02-23] MEDS: ALBUTEROL FS 2.5 MG/0.5 ML VIAL.NEB NEB SCH ×3 (07:35→19:56)
[2023-02-23] MEDS ORDERED: ADENOSINE 6 MG/2 ML VIAL ONE (07:39)
[2023-02-23] MEDS ORDERED: IV NS 0.9% 500 ML IV ONE (07:43)
[2023-02-23] MEDS ORDERED: TICAGRELOR 90 MG TABLET PO ONE (07:47)
[2023-02-23] MEDS: NATEGLINIDE 60 MG TABLET PO SCH ×2 (08:00→12:18)
[2023-02-23] MEDS ORDERED: ASPIRIN 81 MG TAB.CHEW ONE (08:09)
--- NOTE | 2023-02-23 08:27 | NUR ---
PT ARRIVED TO ICU TO ROOM 259 FROM WAFFLE MACHINE OPERATOR. PER REPORT 1 STENT WAS PLACED IN THE LAD. RIGHT RADIAL TR BAND IN PLACE WITH INSTRUCTIONS TO START PULLING AIR OUT AT 1010. PT IS SLEEPY BUT OX4 WITHOUT DIFFICULTY. PT CHECKED ON HOURLY AND PRN BY NURSING STAFF.
[2023-02-23] MEDS: ATORVASTATIN 10 MG TABLET PO SCH ×2 (09:00→10:40)
[2023-02-23] MEDS: FLUOXETINE HCL 20 MG CAPSULE PO SCH ×2 (09:00→10:40)
[2023-02-23] MEDS ORDERED: IV NS 0.9% 1,000 ML IV SCH (09:30)
[2023-02-23] MEDS: LOSARTAN POTASSIUM 50 MG TABLET PO SCH ×2 (10:40→17:24)
[2023-02-23] MEDS: AMLODIPINE BESYLATE 10 MG TABLET PO SCH (10:40)
[2023-02-23] MEDS: METOPROLOL TARTRATE 25 MG TABLET PO SCH ×2 (12:18→21:17)
[2023-02-23] MEDS: INSULIN REGULAR, HUMAN 100 UNIT/ML 3 ML VIAL SQ PRN ×3 (12:19→21:16)
--- NOTE | 2023-02-23 15:00 | NUR ---
TR BAND REMOVED PER PROTOCOL, STARTING AT 1015 ENDING AT 1504. AIR REMOVAL SLOW AND CONSERVATIVE D/T OOZING.
--- NOTE | 2023-02-23 16:17 | NUR ---
PT CAN BE TRANSFERRED BACK TO ROOM 321-2 AT THIS TIME PER MD ORDERS, TR BAND IS OFF, 6 HOUR ICU OBSERVATION IS OVER. REPORT CALLED TO 3W. PT'S IS AT BEDSIDE.
--- NOTE | 2023-02-23 16:35 | NUR ---
PT TRANSPORTED TO ROOM 321-1 VIA BED USING ACLS PROTOCOL. ALL BELONGINGS BROUGHT WITH PATIENT, AT BEDSIDE. BEDSIDE UPDATE GIVEN. PT SETTLED IN ROOM.
--- NOTE | 2023-02-23 16:50 | NUR ---
RN NOTE- TRANSFER BACK FROM ICU. PT HAD STENT PLACED BY DR ZHAO TO LAD. PT STABLE, VSS, CALM AOX4. ORDERS RECEIVED AND COMPLIED WITH, SIDE RAILS UP, BED LOCKED, NEEDS ATTENDED. MONITOR / ASSIST, CONTINUE PLAN OF CARE
--- NOTE | 2023-02-23 18:41 | NUR ---
RN CLOSING NOTE- PT AOX4 IN BED, INTERACTIVE, DENIES PAIN, VS STABLE. PO INTAKE GOOD, VOIDING IN BR WITH STANDBY MONITORING. UA SENT FOR CX, NEEDS ATTENDED, BED LOCKED, SIDE RAILS UP X 2, CALL LIGHT IN REACH. MONITOR / ASSIST
--- NOTE | 2023-02-23 19:38 | NUR ---
RN OPENING NOTE PATIENT AWAKE IN ROOM W/ AT BEDSIDE. A/OX4. NO S/S OF DISTRESS, BREATHING WITHOUT DIFFICULTY ON ROOM AIR. NO IV ACCESS AT THIS TIME. TELE READS SR 70. SAFETY MEASURES IN PLACE: BED AT LOCKED AND AT LOWEST POSITION, RAILS UP X2, CALL ROMANO WITHIN REACH. WILL CONTINUE TO MONITOR PATIENT.
[2023-02-23 21:56] LABS: BILIRUBIN,URINE NEGATIVE (NEGATIVE); COLOR,URINE YELLOW (YELLOW); LEUKOCYTE ESTERASE ,URINE NEGATIVE (NEGATIVE); NITRITE, URINE NEGATIVE (NEGATIVE); PROTEIN,URINE 2+ mg/dl (NEGATIVE); UGLUCOSE 3+ mg/dL (NEGATIVE); UROBILINOGEN,URINE 0.2 EU/dL (0.2)
[2023-02-23] MEDS ORDERED: FLUOXETINE HCL 20 MG CAPSULE PO SCH (22:00)
[2023-02-23] MEDS ORDERED: ATORVASTATIN 10 MG TABLET PO SCH ×2 (22:00)
[2023-02-23 22:23] LABS: WBC,URINE 0-2 /HPF (0-3)
[2023-02-23 22:24] LABS: BACTERIA,URINE None seen /HPF (None Seen); SQUAMOUS EPITHELIAL CELL,UR 0-2 /HPF (None Seen)
[2023-02-24] VITALS: BP 127/63
[2023-02-24] MEDS: ALBUTEROL FS 2.5 MG/0.5 ML VIAL.NEB NEB SCH ×3 (01:30→13:30)
[2023-02-24 04:00] VITALS: BP 125/70
[2023-02-24] MEDS: INSULIN REGULAR, HUMAN 100 UNIT/ML 3 ML VIAL SQ PRN ×2 (06:37→13:03)
[2023-02-24] MEDS: BLOOD SUGAR DIAGNOSTIC 1 EACH STRIP IN SCH ×2 (06:37→11:20)
--- NOTE | 2023-02-24 06:49 | NUR ---
RN CLOSING NOTE PATIENT AWAKE IN BED. A/OX4. NO S/S OF DISTRESS, BREATHING WITHOUT DIFFICULTY ON ROOM AIR. RAC #20 SL INTACT AND PATENT. TELE READS SR 60. SAFETY MEASURES IN PLACE: BED LOCKED AND AT LOWEST POSITION, RAILS UP X2, CALL ROMANO WITHIN REACH. WILL ENDORSE TO NEXT SHIFT FOR EMERALD.
[2023-02-24 07:00] VITALS: BP 136/72
[2023-02-24] MEDS: BUDESONIDE RESPULE INH 0.5 MG/2 ML AMPUL.NEB NEB SCH (07:05)
--- NOTE | 2023-02-24 07:25 | NUR ---
DIRECT CARE STAFFER OPENING NO PATIENT AWAKE IN ROOM A/O X 4 . VERBALLY RESPONSIVE , NO C/O OF PAIN AND DISCOMFORT , NO S/S OF DISTRESS, BREATHING WITHOUT DIFFICULTY ON ROOM AIR IV ACCESS ON THE RAC G#20 SL, . TELE READS SR 60 . SAFETY MEASURES IN PLACE: BED AT LOCKED AND AT LOWEST POSITION, RAILS UP X2, CALL ROMANO WITHIN REACH. WILL CONTINUE TO MONITOR PATIENT.
[2023-02-24] MEDS: PANTOPRAZOLE 40 MG TABLET.DR PO SCH ×2 (07:30→08:37)
[2023-02-24] MEDS: NATEGLINIDE 60 MG TABLET PO SCH ×2 (08:38→13:04)
[2023-02-24] MEDS: LOSARTAN POTASSIUM 50 MG TABLET PO SCH (08:38)
[2023-02-24] MEDS: AMLODIPINE BESYLATE 10 MG TABLET PO SCH (08:39)
[2023-02-24] MEDS: METOPROLOL TARTRATE 25 MG TABLET PO SCH (08:41)
[2023-02-24] MEDS ORDERED: ASPIRIN EC 81 MG TABLET.DR PO SCH (09:00)
[2023-02-24] MEDS ORDERED: TICAGRELOR 90 MG TABLET PO SCH (09:00)
[2023-02-24 12:00] VITALS: BP 133/70
--- NOTE | 2023-02-24 14:50 | NUR ---
SNOW REMOVAL/PLOWING NOTES PATIENT WAS SEEN BY DR KAN , STABLE AND CLEARED FOR DISCHARGE , DISCHARGE INSTRUCTIONS DISCUSSED BY DR LEMON REGARDING MEDS TO CONTINUE AND FOLLOW APPT WITH CARDIO AND PATIENT UNDERSTOOD WITH THE AT BEDSIDE , FOLLOW UP WITH DR ZHAO IN 2 WEEKS , PRESCRIPTION PROVIDED , IV ACCESS AND ID BADGE REMOVED , TRANSPORTATION WILL BE PROVIDED BY , PATIENT LEFT AMBULATORY NO C/O OF PAIN AND DISCOMFORT AND NO SOB OR DISTRESS NOTED . PATIENT LEFT IN A STABLE CONDITION
== END 2023-02-24 14:30 | disposition home or self-care (01) | DRG 247 ==
LOC: ER 12:24 → TELE 15:22 → ICU 02-23 08:33 → TELE 02-23 16:32
PROC: B211YZZ Fluoroscopy of Multiple Coronary Arteries using Other Contrast (ICD-10-PCS; principal; 2023-02-23)
PROC: 4A023N7 Measurement of Cardiac Sampling and Pressure, Left Heart, Percutaneous Approach (ICD-10-PCS; principal; 2023-02-23)
PROC: 027035Z Dilation of Coronary Artery, One Artery with Two Drug-eluting Intraluminal Devices, Percutaneous Approach (ICD-10-PCS; principal; 2023-02-23)
DX: I25.110 Atherosclerotic heart disease of native coronary artery with unstable angina pectoris (principal); N18.4 Chronic kidney disease, stage 4 (severe); I12.9 Hypertensive chronic kidney disease with stage 1 through stage 4 chronic kidney disease, or unspecified chronic kidney disease; E11.22 Type 2 diabetes mellitus with diabetic chronic kidney disease; J45.909 Unspecified asthma, uncomplicated; E78.5 Hyperlipidemia, unspecified; I25.82 Chronic total occlusion of coronary artery; M17.11 Unilateral primary osteoarthritis, right knee; N40.0 Benign prostatic hyperplasia without lower urinary tract symptoms; Z20.822 Contact with and (suspected) exposure to COVID-19; Z79.51 Long term (current) use of inhaled steroids; Z91.013 Allergy to seafood; Z79.899 Other long term (current) drug therapy; Z83.3 Family history of diabetes mellitus; Z88.8 Allergy status to other drugs, medicaments and biological substances
CPT/HCPCS: 36415; 71045-TC; 76770-TC; 80048-TC; 80053-TC; 80076-TC; 81001; 82962-TC; 83735-TC; 83880; 84100-TC; 84484-TC; 85025-TC; 85347; 85610-TC; 85730-TC; 87081-TC; 94799-TC; A4223; C9803; G0378; J0153; J1200; J1644; J1815; J2370; J2930; J3010; J3490; J7030; J7040; Q9967

== ENCOUNTER 2023-03-02 12:10 | Outpatient (CLI) | payer BC ==
[~2023-03-02 12:10] MED LIST changes: +ATOR10TA PO; +FLUO20CA42 PO; +FLUT1DIS3 INH; -FLUT50DI IH; -LISI40TA13 PO; +LOSA50TA39 PO; -METF-440 PO; +NATE120T6 PO; +NATE60TA4 PO; -SITA25TA PO
== END 2023-03-02 23:59 | disposition home or self-care (01) ==
LOC: MRI 12:10
PROVIDERS: ATTEND Legal Medicine
DX: M25.461 Effusion, right knee (principal); M25.561 Pain in right knee
CPT/HCPCS: 73721-TC

== ENCOUNTER 2023-03-21 09:08 | Outpatient (CLI) | payer BC ==
[2023-03-21 09:58] LABS: BASOPHILS # (AUTO) 0.1 K/uL (0.0-0.2); BASOPHILS % (AUTO) 1.1 % (0.0-2.0); BILIRUBIN,URINE NEGATIVE (NEGATIVE); COLOR,URINE YELLOW (YELLOW); EOSINOPHILS % (AUTO) 5.7 % (0.0-6.0); HEMATOCRIT 36 % (39-51); HEMOGLOBIN 11.9 g/dL (13.5-17.5); LEUKOCYTE ESTERASE ,URINE NEGATIVE (NEGATIVE); LYMPHOCYTES # (AUTO) 0.7 K/uL (0.8-4.8); LYMPHOCYTES % (AUTO) 9.7 % (20.0-44.0); MEAN CORPUSCULAR HGB CONC 33 g/dl (31.0-36.0); MEAN CORPUSCULAR VOLUME 85 fL (80-96); MONOCYTES # (AUTO) 0.7 K/uL (0.1-1.30); MONOCYTES % (AUTO) 9.2 % (2.0-12.0); NEUTROPHILS # (AUTO) 5.4 K/uL (1.8-8.9); NEUTROPHILS % (AUTO) 74.3 % (43.0-81.0); NITRITE, URINE NEGATIVE (NEGATIVE); PLATELET COUNT (AUTO) 227 K/uL (150-450); PROTEIN,URINE 3+ mg/dl (NEGATIVE); RED BLOOD CELL COUNT(AUTO) 4.29 MIL/uL (4.5-6.0); UGLUCOSE TRACE mg/dL (NEGATIVE); UROBILINOGEN,URINE 0.2 EU/dL (0.2); WHITE BLOOD COUNT (AUTO) 7.3 K/uL (4.3-11.0)
[2023-03-21 10:10] LABS: BACTERIA,URINE Rare /HPF (None Seen); RBC,URINE 0-2 /HPF (0-2); SQUAMOUS EPITHELIAL CELL,UR Few /HPF (None Seen); WBC,URINE 0-2 /HPF (0-3)
[2023-03-21 10:23] LABS: PROSTATE SPECIFIC ANTIGEN SCR 3.72 ng/mL (0.00-4.00); THYROID STIMULATING HORMONE 0.617 uIU/mL (0.358-3.74); URIC ACID 7.6 mg/dL (2.6-7.2)
[2023-03-21 10:33] LABS: ALBUMIN 3.6 g/dL (3.4-5.0); BILIRUBIN,TOTAL 0.4 mg/dL (0.2-1.0); CALCIUM, SERUM 10.8 mg/dL (8.5-10.1); CREATININE 2.7 mg/dL (0.6-1.3); POTASSIUM 4.6 mmol/L (3.5-5.1); TOTAL PROTEIN, SERUM 7.9 g/dL (6.4-8.2)
== END 2023-03-21 23:59 | disposition home or self-care (01) ==
LOC: LAB 09:08
PROVIDERS: ATTEND Legal Medicine
DX: Z00.00 Encounter for general adult medical examination without abnormal findings (principal); E55.9 Vitamin D deficiency, unspecified; R53.1 Weakness; D64.9 Anemia, unspecified; E03.9 Hypothyroidism, unspecified; N40.0 Benign prostatic hyperplasia without lower urinary tract symptoms; E11.9 Type 2 diabetes mellitus without complications
CPT/HCPCS: 36415; 80053-TC; 80061-TC; 81001; 82306; 82607-TC; 82728-TC; 83540-TC; 84153-TC; 84402; 84403; 84443-TC; 84550-TC; 85025-TC

== ENCOUNTER 2023-05-03 08:12 | Outpatient (CLI) | payer BC ==
[2023-05-03 08:53] LABS: BASOPHILS # (AUTO) 0.1 K/uL (0.0-0.2); BASOPHILS % (AUTO) 1.5 % (0.0-2.0); EOSINOPHILS % (AUTO) 5.4 % (0.0-6.0); HEMATOCRIT 34 % (39-51); HEMOGLOBIN 11.4 g/dL (13.5-17.5); LYMPHOCYTES # (AUTO) 0.7 K/uL (0.8-4.8); LYMPHOCYTES % (AUTO) 10.1 % (20.0-44.0); MEAN CORPUSCULAR HGB CONC 33 g/dl (31.0-36.0); MEAN CORPUSCULAR VOLUME 86 fL (80-96); MONOCYTES # (AUTO) 0.6 K/uL (0.1-1.30); MONOCYTES % (AUTO) 9.1 % (2.0-12.0); NEUTROPHILS # (AUTO) 5.1 K/uL (1.8-8.9); NEUTROPHILS % (AUTO) 73.9 % (43.0-81.0); PLATELET COUNT (AUTO) 235 K/uL (150-450); RED BLOOD CELL COUNT(AUTO) 3.99 MIL/uL (4.5-6.0); WHITE BLOOD COUNT (AUTO) 6.9 K/uL (4.3-11.0)
[2023-05-03 09:34] LABS: ALBUMIN 3.6 g/dL (3.4-5.0); BILIRUBIN,TOTAL 0.3 mg/dL (0.2-1.0); CALCIUM, SERUM 9.2 mg/dL (8.5-10.1); CREATININE 2.9 mg/dL (0.6-1.3); POTASSIUM 4.3 mmol/L (3.5-5.1); TOTAL PROTEIN, SERUM 7.7 g/dL (6.4-8.2)
== END 2023-05-03 23:59 | disposition home or self-care (01) ==
LOC: LAB 08:12
PROVIDERS: ATTEND Internal Medicine Nephrology
DX: I12.9 Hypertensive chronic kidney disease with stage 1 through stage 4 chronic kidney disease, or unspecified chronic kidney disease (principal); E11.22 Type 2 diabetes mellitus with diabetic chronic kidney disease; N18.9 Chronic kidney disease, unspecified
CPT/HCPCS: 36415; 80053-TC; 80061-TC; 82310; 83970; 85025-TC

== ENCOUNTER 2023-12-12 09:08 | Outpatient (CLI) | payer BC ==
[2023-12-12 10:30] LABS: ADD URINE CULTURE NO; APPEARANCE,URINE CLEAR (CLEAR); BACTERIA,URINE Rare /HPF (None Seen); BASOPHILS # (AUTO) 0.1 K/uL (0.0-0.2); BASOPHILS % (AUTO) 1.3 % (0.0-2.0); BILIRUBIN,URINE NEGATIVE (NEGATIVE); BLOOD, URINE NEGATIVE Ery/uL (NEGATIVE); COLOR,URINE YELLOW (YELLOW); EOSINOPHILS # (AUTO) 0.3 K/uL (0.0-0.7); EOSINOPHILS % (AUTO) 3.7 % (0.0-6.0); HEMATOCRIT 37 % (39-51); HEMOGLOBIN 12.3 g/dL (13.5-17.5); KETONES,URINE NEGATIVE (NEGATIVE); LEUKOCYTE ESTERASE ,URINE NEGATIVE (NEGATIVE); LYMPHOCYTES # (AUTO) 0.8 K/uL (0.8-4.8); LYMPHOCYTES % (AUTO) 10.2 % (20.0-44.0); MEAN CORPUSCULAR HEMOGLOBIN 28 PG (26.0-33.0); MEAN CORPUSCULAR HGB CONC 33 g/dl (31.0-36.0); MEAN CORPUSCULAR VOLUME 86 fL (80-96); MONOCYTES # (AUTO) 0.7 K/uL (0.1-1.30); MONOCYTES % (AUTO) 8.7 % (2.0-12.0); NEUTROPHILS # (AUTO) 5.9 K/uL (1.8-8.9); NEUTROPHILS % (AUTO) 76.1 % (43.0-81.0); NITRITE, URINE NEGATIVE (NEGATIVE); PLATELET COUNT (AUTO) 231 K/uL (150-450); PROTEIN,URINE 2+ mg/dl (NEGATIVE); RBC,URINE 0-2 /HPF (0-2); RED BLOOD CELL COUNT(AUTO) 4.34 MIL/uL (4.5-6.0); RED CELL DISTRIBUTION WIDTH 15.6 % (11.5-15.0); SQUAMOUS EPITHELIAL CELL,UR Few /HPF (None Seen); UGLUCOSE NEGATIVE (NEGATIVE); UROBILINOGEN,URINE 0.2 EU/dL (0.2); WBC,URINE 0-2 /HPF (0-3); WHITE BLOOD COUNT (AUTO) 7.8 K/uL (4.3-11.0)
[2023-12-12 11:04] LABS: PROSTATE SPECIFIC ANTIGEN SCR 3.42 ng/mL (0.00-4.00); THYROID STIMULATING HORMONE 1.061 uIU/mL (0.358-3.74); URIC ACID 6.3 mg/dL (2.6-7.2)
[2023-12-12 11:35] LABS: ALBUMIN 3.8 g/dL (3.4-5.0); BILIRUBIN,TOTAL 0.3 mg/dL (0.2-1.0); CREATININE 2.7 mg/dL (0.6-1.3); POTASSIUM 4.4 mmol/L (3.5-5.1); TOTAL PROTEIN, SERUM 8.2 g/dL (6.4-8.2)
[2023-12-13 12:08] LABS: FOLIC ACID 6.8 ng/mL (>3.0)
[2023-12-13 13:11] LABS: VIT D, 25-HYDROXY 34.1 ng/mL (30.0-100.0)
== END 2023-12-12 23:59 | disposition home or self-care (01) ==
LOC: LAB 09:08
PROVIDERS: ATTEND Legal Medicine
DX: Z00.00 Encounter for general adult medical examination without abnormal findings (principal); R53.1 Weakness; E55.9 Vitamin D deficiency, unspecified; E11.22 Type 2 diabetes mellitus with diabetic chronic kidney disease; N18.9 Chronic kidney disease, unspecified; D64.9 Anemia, unspecified; E78.00 Pure hypercholesterolemia, unspecified
CPT/HCPCS: 36415; 80053-TC; 80061-TC; 81001; 82306; 82607-TC; 82728-TC; 83540-TC; 84153-TC; 84402-TC; 84439-TC; 84443-TC; 84550-TC; 85025-TC

== ENCOUNTER 2024-01-24 11:27 | Inpatient (IN) | payer BC ==
[~2024-01-24] VITALS: Ht 172.7 cm; Wt 91.6 kg
[2024-01-24 12:18] LABS: BASOPHILS # (AUTO) 0.2 K/uL (0.0-0.2); BASOPHILS % (AUTO) 2.8 % (0.0-2.0); EOSINOPHILS # (AUTO) 0.2 K/uL (0.0-0.7); EOSINOPHILS % (AUTO) 2.7 % (0.0-6.0); HEMATOCRIT 39 % (39-51); LYMPHOCYTES # (AUTO) 0.8 K/uL (0.8-4.8); MEAN CORPUSCULAR HEMOGLOBIN 28 PG (26.0-33.0); MEAN CORPUSCULAR HGB CONC 33 g/dl (31.0-36.0); MEAN CORPUSCULAR VOLUME 85 fL (80-96); MONOCYTES # (AUTO) 0.5 K/uL (0.1-1.30); MONOCYTES % (AUTO) 6.8 % (2.0-12.0); NEUTROPHILS % (AUTO) 75.7 % (43.0-81.0); PLATELET COUNT (AUTO) 230 K/uL (150-450); RED BLOOD CELL COUNT(AUTO) 4.59 MIL/uL (4.5-6.0); RED CELL DISTRIBUTION WIDTH 15.3 % (11.5-15.0); WHITE BLOOD COUNT (AUTO) 6.7 K/uL (4.3-11.0)
[2024-01-24] MEDS ORDERED: NITROGLYCERIN PACKET 1 GM PACKET ONE (12:33)
[2024-01-24] MEDS ORDERED: ASPIRIN 325 MG TABLET ONE (12:33)
[2024-01-24] MEDS: ASPIRIN 325 MG TABLET PO ONE (12:40)
[2024-01-24 12:42] LABS: CARBON DIOXIDE 24 mmol/L (21-32); CHLORIDE 102 mmol/L (98-107); GLUCOSE 97 mg/dL (74-106); POTASSIUM 4.5 mmol/L (3.5-5.1); SODIUM SERUM 134 mmol/L (136-145); UREA NITROGEN, BLOOD 32 mg/dL (7-18)
[2024-01-24] MEDS: NITROGLYCERIN PACKET 1 GM PACKET TD ONE (12:42)
[2024-01-24 12:48] LABS: ALANINE AMINOTRANSFERASE 58 U/L (12-78); ALBUMIN 3.8 g/dL (3.4-5.0); ALKALINE PHOSPHATASE 79 U/L (46-116); ASPARTATE AMINOTRANSFERASE 37 U/L (15-37); BILIRUBIN,DIRECT 0.1 mg/dL (0.0-0.2); BILIRUBIN,TOTAL 0.4 mg/dL (0.2-1.0); TOTAL PROTEIN, SERUM 7.8 g/dL (6.4-8.2)
[2024-01-24 13:13] LABS: CALCIUM, SERUM 8.9 mg/dL (8.5-10.1)
[2024-01-24] MEDS ORDERED: DAPA10TA PO (13:34)
[2024-01-24] MEDS ORDERED: FISH1CAP16 PO (13:34)
[2024-01-24] MEDS ORDERED: CHOL200026 PO (13:34)
[2024-01-24] MEDS ORDERED: MULT-1196 PO (13:34)
[2024-01-24] MEDS ORDERED: ATOR20TA PO (13:34)
[2024-01-24] MEDS ORDERED: ASPI-1420 PO (13:34)
[2024-01-24] MEDS ORDERED: METO25TA4 PO (13:34)
[2024-01-24] MEDS ORDERED: HYDR-4077 PO (13:34)
[2024-01-24] MEDS ORDERED: SITA100T PO (13:34)
[2024-01-24] MEDS ORDERED: CLOP75TA15 PO (13:34)
[2024-01-24] MEDS ORDERED: SAW500CA2 PO (13:34)
[2024-01-24] MEDS ORDERED: PRAS50CA PO (13:34)
[2024-01-24] MEDS: NATEGLINIDE 60 MG TABLET PO SCH (14:00)
[2024-01-24] MEDS ORDERED: ONDANSETRON HCL/PF 4 MG/2 ML VIAL IVP PRN (14:00)
[2024-01-24] MEDS ORDERED: ACETAMINOPHEN 325 MG TABLET PO PRN (14:00)
[2024-01-24] MEDS ORDERED: ALBUTEROL FS 2.5 MG/3 ML VIAL.NEB NEB PRN (15:00)
[2024-01-24 16:50] VITALS: BP 143/86; TEMP 98.4; O2SAT 99
[2024-01-24] MEDS: LOSARTAN POTASSIUM 50 MG TABLET PO SCH (17:15)
[2024-01-24] MEDS: hydrALAZINE HCL 50 MG TABLET PO SCH (17:15)
[2024-01-24 17:48] VITALS: BP 143/86; TEMP 98.4; O2SAT 99
[2024-01-24 20:00] VITALS: BP 128/81; TEMP 98.1; O2SAT 97
[2024-01-24 20:10] VITALS: BP 128/81; TEMP 98.1; O2SAT 97
[2024-01-24] MEDS: FLUOXETINE HCL 20 MG CAPSULE PO SCH (21:18)
[2024-01-24] MEDS: ATORVASTATIN 10 MG TABLET PO SCH (21:18)
[2024-01-25] VITALS (7 sets, daily range): BP systolic 121–146; BP diastolic 63–84; TEMP 98–98.6; O2SAT 96–98
[2024-01-25 07:08] LABS: BASOPHILS # (AUTO) 0.1 K/uL (0.0-0.2); BASOPHILS % (AUTO) 0.7 % (0.0-2.0); EOSINOPHILS # (AUTO) 0.3 K/uL (0.0-0.7); EOSINOPHILS % (AUTO) 4.3 % (0.0-6.0); HEMATOCRIT 37 % (39-51); HEMOGLOBIN 12.3 g/dL (13.5-17.5); LYMPHOCYTES # (AUTO) 0.8 K/uL (0.8-4.8); LYMPHOCYTES % (AUTO) 10.4 % (20.0-44.0); MEAN CORPUSCULAR HEMOGLOBIN 29 PG (26.0-33.0); MEAN CORPUSCULAR HGB CONC 33 g/dl (31.0-36.0); MEAN CORPUSCULAR VOLUME 87 fL (80-96); MONOCYTES # (AUTO) 0.8 K/uL (0.1-1.30); MONOCYTES % (AUTO) 10.3 % (2.0-12.0); NEUTROPHILS # (AUTO) 5.7 K/uL (1.8-8.9); NEUTROPHILS % (AUTO) 74.3 % (43.0-81.0); PLATELET COUNT (AUTO) 213 K/uL (150-450); RED BLOOD CELL COUNT(AUTO) 4.24 MIL/uL (4.5-6.0); RED CELL DISTRIBUTION WIDTH 14.8 % (11.5-15.0); WHITE BLOOD COUNT (AUTO) 7.7 K/uL (4.3-11.0)
[2024-01-25 08:07] LABS: CALCIUM, SERUM 8.6 mg/dL (8.5-10.1); MAGNESIUM 2.4 mg/dL (1.8-2.4)
[2024-01-25] MEDS: FLUTICASONE/VILANTEROL 1 EACH BLST.W.DEV IH SCH (08:47)
[2024-01-25] MEDS: DAPAGLIFLOZIN PROPANEDIOL 5 MG TABLET PO SCH (08:47)
[2024-01-25] MEDS: AMLODIPINE BESYLATE 10 MG TABLET PO SCH (08:48)
[2024-01-25] MEDS: METOPROLOL SUCCINATE 25 MG TAB.SR.24H PO SCH (08:48)
[2024-01-25] MEDS: CHOLECALCIFEROL (VITAMIN D 3) 400 UNIT TABLET PO SCH (08:49)
[2024-01-25] MEDS: CLOPIDOGREL BISULFATE 75 MG TABLET PO SCH (08:49)
[2024-01-25] MEDS: hydrALAZINE HCL 50 MG TABLET PO SCH (08:49)
[2024-01-25] MEDS: ASPIRIN EC 81 MG TABLET.DR PO SCH (08:49)
[2024-01-25] MEDS: ISOSORBIDE DINITRATE (20MG) 20 MG TABLET PO SCH (08:49)
[2024-01-25] MEDS: MULTIVITAMIN/LUTEIN/MINERALS 1 TAB PO SCH (08:49)
[2024-01-25] MEDS: LINAGLIPTIN 5 MG TABLET PO SCH (08:50)
[2024-01-25] MEDS ORDERED: PRASTERONE PO SCH (09:00)
[2024-01-25] MEDS ORDERED: Medication Not On Formulary EA (Fish Oil/Dha/Epa (Fish Oil 1,200 Mg Fish Oil) 1 EACH) PO SCH (09:00)
[2024-01-25] MEDS ORDERED: ISOS20TA8 PO (11:31)
== END 2024-01-25 17:55 | disposition home or self-care (01) | DRG 302 ==
LOC: ER 11:42 → TELE 15:43
PROVIDERS: ADMIT Nurse Practitioner Acute Care; ATTEND Nurse Practitioner Acute Care
DX: I25.10 Atherosclerotic heart disease of native coronary artery without angina pectoris (principal); N17.0 Acute kidney failure with tubular necrosis; D68.69 Other thrombophilia; E87.1 Hypo-osmolality and hyponatremia; I12.9 Hypertensive chronic kidney disease with stage 1 through stage 4 chronic kidney disease, or unspecified chronic kidney disease; N18.9 Chronic kidney disease, unspecified; E66.01 Morbid (severe) obesity due to excess calories; E78.5 Hyperlipidemia, unspecified; J45.909 Unspecified asthma, uncomplicated; Z79.84 Long term (current) use of oral hypoglycemic drugs; Z95.5 Presence of coronary angioplasty implant and graft; E11.22 Type 2 diabetes mellitus with diabetic chronic kidney disease; D64.9 Anemia, unspecified; Z68.30 Body mass index [BMI] 30.0-30.9, adult
CPT/HCPCS: 36415; 71045-TC; 80048-TC; 80061-TC; 80076-TC; 83735-TC; 84100-TC; 84484-TC; 85025-TC; 93307-TC; A4223; G0378

== ENCOUNTER 2024-01-29 16:37 | Inpatient (IN) | payer BC ==
[~2024-01-29] VITALS: Ht 170.2 cm; Wt 43.5 kg
[~2024-01-29 16:37] MED LIST changes: +ASPI-1420 PO; -ATOR10TA PO; +ATOR20TA PO; +CHOL200026 PO; +CLOP75TA15 PO; +DAPA10TA PO; +FISH1CAP16 PO; +HYDR-4077 PO; +ISOS20TA8 PO; +METO25TA4 PO; +MULT-1196 PO; -NATE120T6 PO; +PRAS50CA PO; +SAW500CA2 PO; +SITA100T PO
[2024-01-29 17:45] LABS: BASOPHILS # (AUTO) 0.1 K/uL (0.0-0.2); BASOPHILS % (AUTO) 1.1 % (0.0-2.0); EOSINOPHILS # (AUTO) 0.4 K/uL (0.0-0.7); EOSINOPHILS % (AUTO) 4.9 % (0.0-6.0); HEMATOCRIT 35 % (39-51); HEMOGLOBIN 11.6 g/dL (13.5-17.5); LYMPHOCYTES # (AUTO) 0.9 K/uL (0.8-4.8); LYMPHOCYTES % (AUTO) 11.8 % (20.0-44.0); MEAN CORPUSCULAR HEMOGLOBIN 28 PG (26.0-33.0); MEAN CORPUSCULAR HGB CONC 33 g/dl (31.0-36.0); MEAN CORPUSCULAR VOLUME 86 fL (80-96); MONOCYTES # (AUTO) 0.8 K/uL (0.1-1.30); MONOCYTES % (AUTO) 10.3 % (2.0-12.0); NEUTROPHILS # (AUTO) 5.3 K/uL (1.8-8.9); NEUTROPHILS % (AUTO) 71.9 % (43.0-81.0); PLATELET COUNT (AUTO) 210 K/uL (150-450); RED BLOOD CELL COUNT(AUTO) 4.12 MIL/uL (4.5-6.0); WHITE BLOOD COUNT (AUTO) 7.3 K/uL (4.3-11.0)
[2024-01-29] MEDS ORDERED: ISOS20TA8 PO (17:47)
[2024-01-29] MEDS: IV NS 0.9% 500 ML BAG IV ONE (17:48)
[2024-01-29 17:57] LABS: CALCIUM, SERUM 8.7 mg/dL (8.5-10.1); CARBON DIOXIDE 24 mmol/L (21-32); CHLORIDE 103 mmol/L (98-107); CREATININE 3.4 mg/dL (0.6-1.3); GLUCOSE 110 mg/dL (74-106); POTASSIUM 4.4 mmol/L (3.5-5.1); SODIUM SERUM 134 mmol/L (136-145); UREA NITROGEN, BLOOD 42 mg/dL (7-18)
[2024-01-29 18:16] LABS: ALANINE AMINOTRANSFERASE 50 U/L (12-78); ALBUMIN 3.5 g/dL (3.4-5.0); ALKALINE PHOSPHATASE 76 U/L (46-116); ASPARTATE AMINOTRANSFERASE 29 U/L (15-37); BILIRUBIN,DIRECT 0.1 mg/dL (0.0-0.2); BILIRUBIN,TOTAL 0.2 mg/dL (0.2-1.0); TOTAL PROTEIN, SERUM 7.3 g/dL (6.4-8.2)
[2024-01-29] MEDS ORDERED: ONDANSETRON HCL/PF 4 MG/2 ML VIAL IVP PRN (23:30)
[2024-01-29] MEDS ORDERED: DEXTROSE 50%-WATER 50 ML DISP.SYRIN IV PRN (23:30)
[2024-01-29] MEDS ORDERED: ACETAMINOPHEN 325 MG TABLET PO PRN (23:30)
[2024-01-30] VITALS: BP 140/85; TEMP 98.2; O2SAT 98
[2024-01-30 04:00] VITALS: BP 138/87; TEMP 98.4; O2SAT 98
[2024-01-30] MEDS ORDERED: ALBUTEROL FS 2.5 MG/0.5 ML VIAL.NEB NEB PRN (07:30)
[2024-01-30 07:47] LABS: BASOPHILS # (AUTO) 0.1 K/uL (0.0-0.2); BASOPHILS % (AUTO) 0.9 % (0.0-2.0); EOSINOPHILS # (AUTO) 0.4 K/uL (0.0-0.7); EOSINOPHILS % (AUTO) 5.7 % (0.0-6.0); HEMATOCRIT 37 % (39-51); HEMOGLOBIN 12.3 g/dL (13.5-17.5); LYMPHOCYTES # (AUTO) 0.7 K/uL (0.8-4.8); MEAN CORPUSCULAR HEMOGLOBIN 29 PG (26.0-33.0); MEAN CORPUSCULAR HGB CONC 33 g/dl (31.0-36.0); MEAN CORPUSCULAR VOLUME 87 fL (80-96); MONOCYTES # (AUTO) 0.8 K/uL (0.1-1.30); MONOCYTES % (AUTO) 11.1 % (2.0-12.0); NEUTROPHILS # (AUTO) 5.2 K/uL (1.8-8.9); NEUTROPHILS % (AUTO) 72.3 % (43.0-81.0); PLATELET COUNT (AUTO) 209 K/uL (150-450); RED BLOOD CELL COUNT(AUTO) 4.24 MIL/uL (4.5-6.0); RED CELL DISTRIBUTION WIDTH 15.3 % (11.5-15.0); WHITE BLOOD COUNT (AUTO) 7.2 K/uL (4.3-11.0)
[2024-01-30 08:00] VITALS: BP 149/91; TEMP 97.7; O2SAT 100
[2024-01-30 08:06] LABS: CALCIUM, SERUM 8.7 mg/dL (8.5-10.1); CREATININE 3.3 mg/dL (0.6-1.3); MAGNESIUM 2.4 mg/dL (1.8-2.4); PHOSPHORUS 4.7 mg/dL (2.5-4.9); POTASSIUM 4.8 mmol/L (3.5-5.1)
[2024-01-30 08:25] LABS: INR 0.99 (0.91-1.10); PARTIAL THROMBOPLASTIN TIME 30.2 SEC (24.3-34.3); PROTHROMBIN TIME 10.5 SECS (9.2-11.1)
[2024-01-30] MEDS: NATEGLINIDE 60 MG TABLET PO SCH (08:35)
[2024-01-30] MEDS: BLOOD SUGAR DIAGNOSTIC 1 EACH STRIP VI SCH (08:35)
[2024-01-30] MEDS: LINAGLIPTIN 5 MG TABLET PO SCH (08:42)
[2024-01-30] MEDS: hydrALAZINE HCL 50 MG TABLET PO SCH (08:42)
[2024-01-30] MEDS: ISOSORBIDE DINITRATE (20MG) 20 MG TABLET PO SCH (08:43)
[2024-01-30] MEDS: PANTOPRAZOLE 40 MG TABLET.DR PO SCH (08:44)
[2024-01-30] MEDS: CLOPIDOGREL BISULFATE 75 MG TABLET PO SCH (08:44)
[2024-01-30] MEDS: ASPIRIN EC 81 MG TABLET.DR PO SCH (08:45)
[2024-01-30] MEDS: AMLODIPINE BESYLATE 10 MG TABLET PO SCH (08:45)
[2024-01-30] MEDS: LOSARTAN POTASSIUM 50 MG TABLET PO SCH (08:46)
[2024-01-30] MEDS: FLUTICASONE/VILANTEROL 1 EACH BLST.W.DEV IH SCH (08:46)
[2024-01-30] MEDS: METOPROLOL SUCCINATE 25 MG TAB.SR.24H PO SCH (08:53)
[2024-01-30 12:00] VITALS: BP 129/88; TEMP 97.7
[2024-01-30 16:00] VITALS: BP 109/65; TEMP 97.7
[2024-01-30 20:00] VITALS: BP 142/70; TEMP 98.6; O2SAT 100
[2024-01-30] MEDS: FLUOXETINE HCL 20 MG CAPSULE PO SCH (22:06)
[2024-01-30] MEDS: ATORVASTATIN 10 MG TABLET PO SCH (22:06)
[2024-01-30] MEDS: predniSONE 20 MG TABLET PO ONE (22:06)
[2024-01-30] MEDS: INSULIN REGULAR, HUMAN 100 UNIT/ML 3 ML VIAL SQ PRN (22:09)
[2024-01-30] MEDS: IV NS 0.9% 1,000 ML IV PRN (22:24)
[2024-01-31] VITALS (10 sets, daily range): BP systolic 126–163; BP diastolic 73–89; TEMP 97.9–98.8; O2SAT 96–99
[2024-01-31] MEDS: predniSONE 20 MG TABLET PO ONE ×2 (03:51→10:00)
[2024-01-31 06:51] LABS: BASOPHILS % (AUTO) 0.2 % (0.0-2.0); EOSINOPHILS % (AUTO) 0.1 % (0.0-6.0); HEMATOCRIT 37 % (39-51); HEMOGLOBIN 12.2 g/dL (13.5-17.5); LYMPHOCYTES # (AUTO) 0.5 K/uL (0.8-4.8); LYMPHOCYTES % (AUTO) 4.7 % (20.0-44.0); MEAN CORPUSCULAR HEMOGLOBIN 29 PG (26.0-33.0); MEAN CORPUSCULAR HGB CONC 33 g/dl (31.0-36.0); MEAN CORPUSCULAR VOLUME 87 fL (80-96); MONOCYTES # (AUTO) 0.1 K/uL (0.1-1.30); MONOCYTES % (AUTO) 0.7 % (2.0-12.0); NEUTROPHILS # (AUTO) 9.8 K/uL (1.8-8.9); NEUTROPHILS % (AUTO) 94.3 % (43.0-81.0); PLATELET COUNT (AUTO) 219 K/uL (150-450); RED BLOOD CELL COUNT(AUTO) 4.23 MIL/uL (4.5-6.0); RED CELL DISTRIBUTION WIDTH 15.1 % (11.5-15.0); WHITE BLOOD COUNT (AUTO) 10.4 K/uL (4.3-11.0)
[2024-01-31 07:15] LABS: ALBUMIN 3.2 g/dL (3.4-5.0); BILIRUBIN,TOTAL 0.4 mg/dL (0.2-1.0); CALCIUM, SERUM 8.4 mg/dL (8.5-10.1); CREATININE 3.2 mg/dL (0.6-1.3); MAGNESIUM 2.3 mg/dL (1.8-2.4); PHOSPHORUS 2.9 mg/dL (2.5-4.9); POTASSIUM 5.6 mmol/L (3.5-5.1); TOTAL PROTEIN, SERUM 7.7 g/dL (6.4-8.2)
[2024-01-31] MEDS: diphenhydrAMINE HCL 50 MG CAPSULE PO ONE (07:46)
[2024-01-31] MEDS ORDERED: diphenhydrAMINE HCL 50 MG CAPSULE PO ONE (10:00)
[2024-01-31] MEDS ORDERED: IV SET PRIMARY PUMP SET 1 EA INFUS.SET MC ONE (11:15)
[2024-01-31] MEDS ORDERED: IV NS 0.9% 1,000 ML ONE (11:15)
[2024-01-31] MEDS ORDERED: LIDOCAINE HCL/MPF 1% 30 ML VIAL IJ ONE (11:16)
[2024-01-31] MEDS ORDERED: IODIXANOL 150 ML IV ONE ×2 (11:16→12:24)
[2024-01-31] MEDS ORDERED: NITROGLYCERIN IN 5 % DEXTROSE 250 ML IV ONE (11:16)
[2024-01-31] MEDS ORDERED: FENTANYL PF 100MCG/2ML AMPUL ONE (11:42)
[2024-01-31] MEDS ORDERED: MIDAZOLAM HCL 2 MG/2ML VIAL ONE (11:43)
[2024-01-31] MEDS ORDERED: HEPARIN SODIUM, PORCINE 5000 UNITS/1 ML VIAL ONE (11:51)
[2024-01-31] MEDS ORDERED: HEPARIN SODIUM, PORCINE 1,000 UNIT/ML VIAL ONE (11:52)
[2024-01-31] MEDS ORDERED: IODIXANOL 320MG/ML 50 ML IV ONE ×2 (11:55→12:12)
[2024-01-31] MEDS ORDERED: TICAGRELOR 90 MG TABLET ONE (12:21)
[2024-01-31] MEDS ORDERED: NITROGLYCERIN 0.4 MG/TAB BOTTLE ONE (12:51)
[2024-01-31] MEDS ORDERED: DOPamine 400MG/D5W 250ML RTU 250 ML ONE (13:05)
[2024-01-31] MEDS ORDERED: CLONIDINE HCL 0.1 MG TABLET PO PRN (15:30)
[2024-01-31] MEDS ORDERED: MORPHINE SULFATE INJ 2 MG/ML DISP.SYRIN IV PRN (15:30)
[2024-01-31] MEDS: IV NS 0.9% 1,000 ML IV PRN (16:16)
[2024-01-31] MEDS: *INSULIN REGULAR(HUMULIN R)HUM 100 UNIT/ML VIAL SQ PRN (16:39)
[2024-01-31] MEDS: CLOPIDOGREL BISULFATE 75 MG TABLET PO ONE (21:47)
[2024-02-01] VITALS (15 sets, daily range): BP systolic 107–153; BP diastolic 52–92; TEMP 98.1–98.5; O2SAT 94–99
[2024-02-01] MEDS: SODIUM POLYSTYRENE SULFONATE 15 G/60 ML BOTTLE PO ONE (08:00)
[2024-02-01 09:28] LABS: BASOPHILS % (AUTO) 0.1 % (0.0-2.0); EOSINOPHILS % (AUTO) 0.1 % (0.0-6.0); HEMATOCRIT 35 % (39-51); HEMOGLOBIN 11.6 g/dL (13.5-17.5); LYMPHOCYTES # (AUTO) 0.5 K/uL (0.8-4.8); LYMPHOCYTES % (AUTO) 3.3 % (20.0-44.0); MEAN CORPUSCULAR HEMOGLOBIN 29 PG (26.0-33.0); MEAN CORPUSCULAR HGB CONC 33 g/dl (31.0-36.0); MEAN CORPUSCULAR VOLUME 87 fL (80-96); MONOCYTES # (AUTO) 1.2 K/uL (0.1-1.30); MONOCYTES % (AUTO) 7.8 % (2.0-12.0); NEUTROPHILS # (AUTO) 13.2 K/uL (1.8-8.9); NEUTROPHILS % (AUTO) 88.7 % (43.0-81.0); PLATELET COUNT (AUTO) 219 K/uL (150-450); RED BLOOD CELL COUNT(AUTO) 4.05 MIL/uL (4.5-6.0); RED CELL DISTRIBUTION WIDTH 15.1 % (11.5-15.0); WHITE BLOOD COUNT (AUTO) 14.8 K/uL (4.3-11.0)
[2024-02-01 10:20] LABS: BILIRUBIN,TOTAL 0.4 mg/dL (0.2-1.0); CALCIUM, SERUM 8.1 mg/dL (8.5-10.1); CREATININE 2.8 mg/dL (0.6-1.3); MAGNESIUM 2.1 mg/dL (1.8-2.4); PHOSPHORUS 3.2 mg/dL (2.5-4.9); POTASSIUM 4.7 mmol/L (3.5-5.1); TOTAL PROTEIN, SERUM 7.1 g/dL (6.4-8.2)
== END 2024-02-01 14:32 | disposition home or self-care (01) | DRG 322 ==
LOC: ER 16:38 → TELE1 21:13 → ICU 01-31 14:00
PROVIDERS: ADMIT Nurse Practitioner Acute Care; ATTEND Internal Medicine
PROC: 4A023N7 Measurement of Cardiac Sampling and Pressure, Left Heart, Percutaneous Approach (ICD-10-PCS; 2024-01-31)
PROC: B211YZZ Fluoroscopy of Multiple Coronary Arteries using Other Contrast (ICD-10-PCS; 2024-01-31)
PROC: 027034Z Dilation of Coronary Artery, One Artery with Drug-eluting Intraluminal Device, Percutaneous Approach (ICD-10-PCS; principal; 2024-02-01)
DX: I25.110 Atherosclerotic heart disease of native coronary artery with unstable angina pectoris (principal); E87.1 Hypo-osmolality and hyponatremia; N17.9 Acute kidney failure, unspecified; D68.69 Other thrombophilia; I25.700 Atherosclerosis of coronary artery bypass graft(s), unspecified, with unstable angina pectoris; Z68.1 Body mass index [BMI] 19.9 or less, adult; I12.9 Hypertensive chronic kidney disease with stage 1 through stage 4 chronic kidney disease, or unspecified chronic kidney disease; N18.9 Chronic kidney disease, unspecified; D64.9 Anemia, unspecified; E11.22 Type 2 diabetes mellitus with diabetic chronic kidney disease; E66.01 Morbid (severe) obesity due to excess calories; E78.5 Hyperlipidemia, unspecified; J45.909 Unspecified asthma, uncomplicated; Z83.3 Family history of diabetes mellitus; N40.0 Benign prostatic hyperplasia without lower urinary tract symptoms; E87.5 Hyperkalemia; Z79.84 Long term (current) use of oral hypoglycemic drugs; Z82.3 Family history of stroke; Z82.49 Family history of ischemic heart disease and other diseases of the circulatory system; Z91.041 Radiographic dye allergy status
CPT/HCPCS: 36415; 71045-TC; 80048-TC; 80053-TC; 80076-TC; 82962-TC; 83735-TC; 84100-TC; 84484-TC; 85025-TC; 85347; 85610-TC; 85730-TC; A4223; C1725; C1753; C1769; C1887; C9600; G0378; G0500; J1265; J1644; J1815; J2250; J3010; J3490; J7030; J7040; Q0163; Q9967